=== PATIENT | female | born 1990 | race Caucasian/White ===

== ENCOUNTER 2017-04-18 08:00 | Outpatient (CLI) | payer OTHER | END 2017-04-18 23:59 | disposition home or self-care (01) | LOC: LAB.R 08:00 | PROVIDERS: ATTEND Registered Nurse | DX: Z11.3 Encounter for screening for infections with a predominantly sexual mode of transmission (principal) | CPT/HCPCS: 87491; 87591 ==

== ENCOUNTER 2017-04-18 15:44 | Outpatient (CLI) | payer OTHER ==
[2017-04-18 16:26] LABS: BASOPHILS # (AUTO) 0.1 10^3/uL (0.0-0.1); BASOPHILS % (AUTO) 0.7 %; EOSINOPHILS # (AUTO) 0.1 10^3/uL (0.0-0.7); EOSINOPHILS % (AUTO) 1.3 %; HCT - HEMATOCRIT 42.2 % (37.0-47.0); HGB - HEMOGLOBIN 14.1 g/dL (12.0-16.0); LYMPHOCYTES # (AUTO) 2.1 10^3/uL (1.5-3.5); LYMPHOCYTES % (AUTO) 30.1 %; MEAN CORPUSCULAR HGB CONC 33.5 g/dL (32.0-36.0); MEAN CORPUSCULAR VOLUME 92.5 fL (81.0-99.0); MEAN PLATELET VOLUME 8.7 fL (7.9-10.8); MONOCYTES # (AUTO) 0.5 10^3/uL (0.0-1.0); MONOCYTES % (AUTO) 7.5 %; NEUTROPHILS # (AUTO) 4.3 10^3/uL (1.5-6.6); NEUTROPHILS % (AUTO) 60.4 %; NUCLEATED RED BLOOD CELLS AUTO 0.1 /100WBC; RED BLOOD COUNT 4.56 10^6/uL (4.20-5.40); RED CELL DISTRIBUTION WIDTH 12.8 % (12.0-15.0); UNCORRECTED WHITE BLOOD COUNT 7.1 x10^3/uL; WHITE BLOOD COUNT 7.1 x10^3/uL (4.8-10.8)
[2017-04-18 18:20] LABS: BILIRUBIN,URINE NEGATIVE (NEGATIVE)
[2017-04-18 19:10] LABS: WBC,URINE 0-3 /HPF (0-5)
[2017-04-23 18:31] LABS: TEST RESULT REPORT
== END 2017-04-18 15:45 | disposition home or self-care (01) ==
LOC: LAB 15:44
PROVIDERS: ATTEND Registered Nurse
DX: Z36.9 Encounter for antenatal screening, unspecified (principal)
CPT/HCPCS: 36415; 81001; 81599; 85025; 86762; 86850; 86900; 86901; 87340; 87389

== ENCOUNTER 2017-04-27 11:35 | Outpatient (CLI) | payer OTHER ==
[2017-05-07 11:57] LABS: TEST RESULT REPORT
== END 2017-04-27 11:36 | disposition home or self-care (01) ==
LOC: LAB 11:35
PROVIDERS: ATTEND Registered Nurse
DX: Z36.9 Encounter for antenatal screening, unspecified (principal)
CPT/HCPCS: 36415; 81220; 81599

== ENCOUNTER 2017-07-01 12:41 | Outpatient (CLI) | payer OTHER ==
--- NOTE | 2017-07-03 16:24 | DEXA Report ---
OB ULTRASOUND: 07/01/2017 CLINICAL INDICATION: anatomy. TECHNIQUE: Real-time scanning was performed with branch sales and service representative static images obtained. LAST MENSTRUAL PERIOD: 02/11/2017 Clinical Age: 20 weeks 0 days US Age: 20 weeks 2 days EFW Hadlock: 329 grams EFW% Hadlock: -- Heart Rate: 143 bpm EDC: 11/18/2017 US EDC: 11/16/2017 BPD Hadlock: 20 weeks 6 days; Mean mm 49 HC Hadlock: 20 weeks 1 day; Mean mm 176 AC Hadlock: 20 weeks 2 days; Mean mm 151 FL Hadlock: 19 weeks 4 days; Mean mm 30 Presentation: cephalic. Placental Location: fundal. Cervical Length: 4.9 cm Amniotic Fluid: 13.05 FINDINGS There is a single viable intrauterine gestation, in cephalic presentation. heart rate is 143 BPM. The placenta is fundal without evidence of previa. Umbilical cord insertion is eccentric, at 1.5 cm from the placental edge. Amniotic fluid volume is subjectively normal, with the deepest pocket of 4.2 cm. By size, the fetus measures 20 weeks 2 days (20 weeks 0 days per dating on the order). The following anatomic structures were visualized and appear normal: The intracranial contents, including the ventricles and posterior fossa; the lips and orbits; the spine; the heart, including 4 chamber view and outflow tracts, and diaphragm; the abdominal contents, including the stomach, the bilateral kidneys, and urinary bladder, as well as a normal 3 vessel cord insertion; 4 limbs. No free fluid or adnexal lesion is appreciated. IMPRESSION: Single viable intrauterine gestation, with size in keeping with stated dating. Normal anatomic survey. Eccentric, but not marginal insertion of the umbilical cord into the placenta. TD: 07/01/2017 20:57 MTDD
== END 2017-07-01 12:42 | disposition home or self-care (01) ==
LOC: DI 12:41
PROVIDERS: ATTEND Nurse Practitioner Obstetrics & Gynecology
DX: Z36.9 Encounter for antenatal screening, unspecified (principal)
CPT/HCPCS: 76811

== ENCOUNTER 2017-08-14 07:07 | Outpatient (CLI) | payer OTHER | END 2017-08-14 07:08 | disposition home or self-care (01) | LOC: LAB.F 07:07 | PROVIDERS: ATTEND Nurse Practitioner Obstetrics & Gynecology | DX: Z36.9 Encounter for antenatal screening, unspecified (principal) ==

== ENCOUNTER 2017-08-15 09:29 | Outpatient (CLI) | payer OTHER ==
[2017-08-15 10:48] LABS: MEAN CORPUSCULAR HEMOGLOBIN 31.9 pg (27.0-31.0); MEAN CORPUSCULAR HGB CONC 34.9 g/dL (32.0-36.0); MEAN CORPUSCULAR VOLUME 91.3 fL (81.0-99.0); MEAN PLATELET VOLUME 8.7 fL (7.9-10.8); RED BLOOD COUNT 3.76 10^6/uL (4.20-5.40); RED CELL DISTRIBUTION WIDTH 13.3 % (12.0-15.0); WHITE BLOOD COUNT 8.6 x10^3/uL (4.8-10.8)
== END 2017-08-15 09:30 | disposition home or self-care (01) ==
LOC: LAB 09:29
PROVIDERS: ATTEND Nurse Practitioner Obstetrics & Gynecology
DX: Z36.9 Encounter for antenatal screening, unspecified (principal)
CPT/HCPCS: 36415; 82950; 86850

== ENCOUNTER 2017-08-22 07:57 | Outpatient (CLI) | payer OTHER | END 2017-08-22 07:58 | disposition home or self-care (01) | LOC: LAB 07:57 | PROVIDERS: ATTEND Nurse Practitioner Obstetrics & Gynecology | DX: R73.01 Impaired fasting glucose (principal) | CPT/HCPCS: 36415; 82951 ==

== ENCOUNTER 2017-08-29 16:14 | Outpatient (CLI) | payer OTHER | END 2017-08-29 16:15 | disposition home or self-care (01) | LOC: WFO 16:14 | PROVIDERS: ATTEND Nurse Practitioner Obstetrics & Gynecology | DX: Z53.9 Procedure and treatment not carried out, unspecified reason (principal) ==

== ENCOUNTER 2017-10-10 16:30 | Outpatient (CLI) | payer OTHER ==
[2017-10-10 18:02] LABS: ALBUMIN 3.1 g/dL (3.2-5.5); BILIRUBIN,DIRECT 0.1 mg/dL (0.1-0.5); BILIRUBIN,TOTAL 0.8 mg/dL (0.2-1.0); TOTAL PROTEIN 6.4 g/dL (6.7-8.2)
== END 2017-10-10 16:31 | disposition home or self-care (01) ==
LOC: DI 16:30
PROVIDERS: ATTEND Registered Nurse
DX: L29.9 Pruritus, unspecified (principal)
CPT/HCPCS: 36415; 80076; 82239

== ENCOUNTER 2017-10-22 13:04 | Outpatient (CLI) | payer OTHER ==
--- NOTE | 2017-10-24 15:19 | Ultrasound Report ---
OB FOLLOWUP: 10/22/2017 CLINICAL INDICATION: Eccentric umbilical cord insertion, check growth. COMPARISON: 07/01/2017. TECHNIQUE: Real-time scanning was performed with customer counter representative static images obtained. LAST MENSTRUAL PERIOD: 02/09/2017 Clinical Age: 36 weeks 3 days US Age: 37 weeks 1 day EFW Hadlock: 3086 g EFW% Hadlock: 68% Heart Rate: 157 bpm EDC: 11/16/2017 US EDC: 11/11/2017 BPD Hadlock: 37 weeks 2 days; Mean mm 91.8 HC Hadlock: 37 weeks 4 days; Mean mm 330.5 AC Hadlock: 37 weeks 0 days; Mean mm 331.4 FL Hadlock: 36 weeks 3 days; Mean mm 71.1 Presentation: cephalic Placental Location: fundal Cervical Length: --- Amniotic Fluid: 8.6 cm FINDINGS: There is a single viable intrauterine gestation, in cephalic presentation. heart rate is 157 BPM. The placenta is anterior. The cord insertion is not well visualized on today's examination. Amniotic fluid volume is normal, with an KATHIA of 8.6. By size, the fetus measures 37 weeks 1 day (36 weeks 3 days by previous sonogram). Estimated weight by Hadlock method is 3086 grams, 68th percentile for 36 weeks 3 days. No free fluid or adnexal lesion is appreciated. IMPRESSION: SINGLE VIABLE INTRAUTERINE GESTATION, WITH EXPECTED GROWTH FROM PREVIOUS ULTRASOUND. MTDD
== END 2017-10-22 13:05 | disposition home or self-care (01) ==
LOC: DI 13:04
PROVIDERS: ATTEND Registered Nurse
DX: O43.123 Velamentous insertion of umbilical cord, third trimester (principal)
CPT/HCPCS: 76816

== ENCOUNTER 2017-10-24 13:55 | Outpatient (CLI) | payer OTHER | END 2017-10-24 13:56 | disposition home or self-care (01) | LOC: LAB.R 13:55 | PROVIDERS: ATTEND Nurse Practitioner Obstetrics & Gynecology | DX: Z36.85 Encounter for antenatal screening for Streptococcus B (principal) | CPT/HCPCS: 87081 ==

== ENCOUNTER 2017-11-08 19:00 | Inpatient (IN) | payer OTHER ==
[2017-11-08 19:25] LABS: RUPTURE OF MEMBRANES PLUS POSITIVE (NEGATIVE)
[2017-11-08] MEDS ORDERED: SODIUM CHLORIDE FLUSH 0.9% 10 ML SYRINGE IVP PRN (20:52)
[2017-11-08] MEDS ORDERED: ACETAMINOPHEN 325 MG TABLET PO PRN (20:52)
--- NOTE | 2017-11-08 21:00 | HISTORY & PHYSICAL EXAMINATION ---
Admit History - Instructions [place]ash: -Left hand click circles element as positive or present. -Right hand click slashes element as negative or not present. - Visit Reason Visit Reason: Membranes rupture - : 1 Parity: 0 Premature: 0 Ectopic: 0 : 0 Care: positive: [facility] Risk/History: positive: Premature rupture membrane Complications This : positive: None Smoking Status: Never smoker - Mother's Labs Mother's Blood Type: positive: O Mother's RH: positive: Positive GBS: positive: Group B Step Negative Rubella Status: positive: Immune - Other Maternal History Other Maternal History: HPI: This 27yo @ 38.5wks gestation by L=9wk U/S presents for rupture of membranes at 1730 this evening. She reports a moderate amount of clear fluid that ran down her legs and soaked her pants 2 different times. She reports continued leaking. Upon evaluation she was noted to be closed/thick/high, vertex , posterior and to have grossly ruptured membranes. She was admitted to L&D for active management. She reports + movement. Denies contractions. Reports small amount of light pink discharge x 1 on the toilet tissue s/p first leakage of fluid but denies VB since that time. 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 Meds: PNV Allergies: NKDA labs: Blood type: O Rh: pos, Antibody: neg Hgb 14.1; Hct 42.2; PLT 242 Rubella immune HIV non-reactive GC/CT neg Hep B non-reactive FTA-ABS - neg Genetic testing: CF positive, neg 28 week labs: Hgb 12.0 Antibody neg 1 hour GTT 151 3 hour GTT: Fasting 82, 1 hour 156; 2 hour 130 10/20/2017: Bile Acids - 9; AST 20; ALT 15 Ultrasounds: 07/07/2017 FAS WNL with exception of eccentric cord insertion, 1.5cm from placental edge. Placental fundal, no previa. Physical Exam: Heart RRR w/ o M/G/R, lungs CTAB. Abdomen gravid, soft, nontender FHT's baseline 150, moderate variability, pos accel, no decels. Contractions palpate mild every 2-11 minutes. BP: 130/96, afebrile, P93 Assessment: 27yo @ 38.5wks gestation by L=9wk U/S Premature rupture of membranes - ROM + positive SVE closed/thick/high, vertex, posterior Desires epidural for pain management during active labor Plan: Continuous monitoring Cervadil cervical ripening in anticipation for pitocin indicated for premature rupture of membranes Activity and nutrition as indicated; encouraged position changes. Physical - Abdominal Exam Vital Signs: Temp Pulse Resp BP Pulse Ox 37.0 C 96 22 130/84 H 99 11/08/17 19:18 11/08/17 19:18 11/08/17 19:18 11/08/17 19:18 11/08/17 19:18
--- NOTE | 2017-11-08 21:21 | PROVIDER PROGRESS NOTE ---
Labor Progress Note - Uterine Monitoring Uterine Monitoring Mode: positive: External toco Contraction Frequency (min/apart): 2-11 Contraction Intensity: positive: Mild Uterine Resting Tone: positive: Soft - Monitoring Monitor Mode: positive: External ultrasound Heart Rate Baseline: 150 Heart Rate Variability: positive: Moderate (6-25 bmp) Accelerations: positive: Present, 15x15 Decelerations: positive: None Strip Review: positive: Category I - Vaginal Exam Dilation (in cm): 0 Effacement (%): 0 Station: -3 Cervical Position: Posterior - Labor Progress Note Labor Progress Note/Additional Text: S: Zaynab is sitting comfortably in bed with Juan supportive at the bedside. She complains of a mild headache since earlier this afternoon. She denies visual disturbances, RUQ or epigastric pain. She denies edema. Reports + FM and continued leaking of clear fluid. She is not feeling her contractions. Mood is good. States she is tired and thinks she will be able to sleep tonight but is slightly anxious about the anticipation of having a baby. O: SVE closed/thick/high, vertex, posterior. Clear fluid noted on pad. BP 130/96, Afebrile A: 27yo @ 38.5wks gestation by L=9 wk U/S PROM x 3.5 hours -afebrile GBS negative P: Risks vs benefits of expectant vs active management reviewed extensively with patient and her . They are in agreement with the recommendation for active management at this time. Will limit cervical examinations and defer SVE until 0800 on 11/09/2017 unless otherwise clinically indicated. Cervadil cervical ripening with 50mcg misoprostol q 4 hours BC in anticipation for pitocin induction of labor secondary to PROM Continuous monitoring Encouraged ambien for sleep tonight. Pt and verbalized understanding and agree to above plan. They deny further questions or concerns at this time.
[2017-11-08] MEDS ORDERED: ZOLPIDEM 5 MG TABLET PO PRN (21:22)
[2017-11-08] MEDS: miSOPROStol 100 MCG TABLET BC SCH (21:48)
[2017-11-08] MEDS: SODIUM CHLORIDE FLUSH 0.9% 10 ML SYRINGE IVP SCH (21:51)
[2017-11-08 21:52] LABS: BASOPHILS # (AUTO) 0.1 10^3/uL (0.0-0.1); BASOPHILS % (AUTO) 0.4 %; EOSINOPHILS # (AUTO) 0.1 10^3/uL (0.0-0.7); EOSINOPHILS % (AUTO) 0.5 %; HGB - HEMOGLOBIN 11.5 g/dL (12.0-16.0); LYMPHOCYTES # (AUTO) 2.4 10^3/uL (1.5-3.5); LYMPHOCYTES % (AUTO) 18.3 %; MEAN CORPUSCULAR HEMOGLOBIN 28.9 pg (27.0-31.0); MEAN CORPUSCULAR HGB CONC 33.1 g/dL (32.0-36.0); MEAN CORPUSCULAR VOLUME 87.3 fL (81.0-99.0); MONOCYTES # (AUTO) 0.7 10^3/uL (0.0-1.0); MONOCYTES % (AUTO) 5.6 %; NEUTROPHILS % (AUTO) 75.2 %; PLT - PLATELET COUNT 225 10^3/uL (130-450); RED BLOOD COUNT 3.99 10^6/uL (4.20-5.40); RED CELL DISTRIBUTION WIDTH 14.6 % (12.0-15.0); WHITE BLOOD COUNT 13.4 x10^3/uL (4.8-10.8)
[2017-11-08 22:05] LABS: ALBUMIN 2.9 g/dL (3.2-5.5); ALBUMIN/GLOBULIN RATIO 0.9 (1.0-2.2); BILIRUBIN,TOTAL 0.5 mg/dL (0.2-1.0); CALCIUM 8.5 mg/dL (8.5-10.3); CREATININE 0.6 mg/dL (0.4-1.0); TOTAL PROTEIN 6.1 g/dL (6.7-8.2); URIC ACID 3.7 mg/dL (2.6-7.2)
[2017-11-08] MEDS: LACTATED RINGERS 1,000 ML IV SCH (23:05)
[2017-11-09] MEDS: miSOPROStol 100 MCG TABLET BC SCH ×2 (01:52→05:57)
[2017-11-09] MEDS: LACTATED RINGERS 1,000 ML IV SCH ×4 (05:58→17:41)
--- NOTE | 2017-11-09 06:54 | PROVIDER PROGRESS NOTE ---
Labor Progress Note - Uterine Monitoring Uterine Monitoring Mode: positive: External toco Contraction Frequency (min/apart): 3-5 Contraction Intensity: positive: Moderate Uterine Resting Tone: positive: Soft - Monitoring Monitor Mode: positive: External ultrasound Heart Rate Baseline: 130 Heart Rate Variability: positive: Moderate (6-25 bmp) Accelerations: positive: Present, 15x15 Decelerations: positive: None Strip Review: positive: Category I - Vaginal Exam Dilation (in cm): 1 Effacement (%): 80 Station: 0 Cervical Position: Anterior - Labor Progress Note Labor Progress Note/Additional Text: S: Pt up on birthing ball. She slept for approximately 4 hours last night despite taking PO ambien. She is feeling increased cramping with contractions and is now easily able to differentiate one contraction from the next whereas prior she felt constant, menstrual-like cramping. Continues to leak clear fluid. Reports +FM. Denies TERRELL, visual disturbances, RUQ pain or epigastric pain. O: BP 99/66, afebrile. FHR baseline 130s, moderate variability, + accels, no decels. Contractions palpate moderate every 3-5 minutes with soft resting tone. A: 27yo @ 38.6wks gestation by L=9wk U/S ROM x 13 hours - afebrile GBS negative Cervical ripening successful and cervix favorable with a Li score of 8. S/p 3 doses of 50 mcg BC misoprostal. FHT Category I P: Last dose of misoprostol administered at 0600. Will initiate pitocin per protocol at 1000. Continuous monitoring. Epidural per maternal request. She verbalized understanding and agrees to above plan. She denies further questions or concerns at this time.
[2017-11-09] MEDS ORDERED: ONDANSETRON 4 MG/2 ML VIAL IVP PRN (08:35)
[2017-11-09] MEDS: SODIUM CHLORIDE FLUSH 0.9% 10 ML SYRINGE IVP SCH ×2 (08:42→10:16)
[2017-11-09] MEDS ORDERED: ONDANSETRON 4 MG/2 ML VIAL ONE (08:50)
[2017-11-09] MEDS ORDERED: OXYTOCIN/SODIUM CHLORIDE 500 ML IV SCH (09:00)
[2017-11-09 10:04] LABS: CREATININE,URINE 64.3 mg/dL; PROTEIN/CREATININE RATIO,URINE 0.1 (<=0.2)
--- NOTE | 2017-11-09 12:49 | PROVIDER PROGRESS NOTE ---
Labor Progress Note - Uterine Monitoring Uterine Monitoring Mode: positive: External toco Contraction Frequency (min/apart): 3-6 Contraction Intensity: positive: Moderate Uterine Resting Tone: positive: Soft - Monitoring Monitor Mode: positive: External ultrasound Heart Rate Baseline: 140 Heart Rate Variability: positive: Moderate (6-25 bmp) Accelerations: positive: Present, 15x15 Decelerations: positive: None Strip Review: positive: Category I - Vaginal Exam Dilation (in cm): 3 Effacement (%): 90 Station: 0 Cervical Position: Anterior - Labor Progress Note Labor Progress Note/Additional Text: S: Pt crying in discomfort with contractions and grabbing onto side rail and breathing heavily through contractions. She reports she is tired and she is requesting an epidural at this time. and parents supportive at the bedside. O: BP 102/79, T 36.8, RR 17, HR 88; SVE 3/90/0, vertex, medium consistency, anterior position. There is a tight band at 3cm. Pt has no hx of deputy coroner surgeries or surgical procedures. Contractions palpate moderate inconsistently every 3-6 minutes. FHR baseline 140, moderate variability, + accels, no decels. A: 27yo @ 38.6 wks gestation by L=9wk U/S ROM x 19 hours-afebrile GBS negative Pitocin augmentation - Pitocin at 3mU/mL P: Epidural per maternal request. Josh Guardado CRNA notified by telephone. Continue titration of pitocin per protocol Continuous monitoring Anticipate spontaneous vaginal delivery
[2017-11-09] MEDS ORDERED: fent/BUPIV 2 MCG/0.125% 250 ML EP ONE (13:00)
--- NOTE | 2017-11-09 17:11 | PROVIDER PROGRESS NOTE ---
Labor Progress Note - Uterine Monitoring Uterine Monitoring Mode: positive: External toco Contraction Frequency (min/apart): 1.5-5 Contraction Intensity: positive: Moderate Uterine Resting Tone: positive: Soft - Monitoring Monitor Mode: positive: External ultrasound Heart Rate Baseline: 150 Heart Rate Variability: positive: Moderate (6-25 bmp) Accelerations: positive: Present, 15x15 Decelerations: positive: Late, Variable Strip Review: positive: Category II - Vaginal Exam Dilation (in cm): 4 Effacement (%): 90 Station: 0 Cervical Position: Anterior - Labor Progress Note Labor Progress Note/Additional Text: S: Zaynab is laying comfortably in bed on her left side. She is feeling well and was able to rest and get a little sleep. Unable to appreciate contractions since placement of epidural. Has good movement of her feet. Mood is good. supportive at the bedside. O: FHR baseline 150s, moderate variability, + accels, occasional variable decelerations, occasional late decelerations with rosalee decreased to 120bpm. Contractions palpate moderate every 1.5-5 minutes SVE 3/90/0, vertex, medium consistency, posterior Pitocin currently running at 4mU/mL A: 27yo @ 38.6wks gestation ROM x 24 hours FHT Category II - overall reassuring with continued moderate variability Augmentation of labor with pitocin max 4mU/mL GBS negative P: Continue pitocin per protocol Fluid bolus 500mL due to Category II FHR tracing Continuous monitoring Encouraged position changes in bed. Reviewed Category II tracing with pt and and discussed continued plan of care. Pt and agree with above plan and deny further questions or concerns at this time.
--- NOTE | 2017-11-09 19:15 | PROVIDER PROGRESS NOTE ---
Labor Progress Note - Uterine Monitoring Uterine Monitoring Mode: positive: External toco Contraction Frequency (min/apart): 1.5-6 Contraction Intensity: positive: Moderate Uterine Resting Tone: positive: Soft - Monitoring Monitor Mode: positive: External ultrasound Heart Rate Baseline: 140 Heart Rate Variability: positive: Moderate (6-25 bmp) Accelerations: positive: Present, 15x15 Decelerations: positive: Early, Late Strip Review: positive: Category II - Labor Progress Note Labor Progress Note/Additional Text: S: Pt comfortable in bed in a frog leg position. Feeling increased vaginal pressure in this position. supportive at the bedside. O: SVE deferred at this time. T 37.2 Contractions palpate moderate every 1.5-6 minutes FHR baseline 140, moderate variability, + accels, intermittent variable decelerations, intermittent late decelerations. Pitocin @ 6mU/mL S/p 500mL IV fluid bolus; O2 mask placed A: 27yo @ 38.6wks gestation by L=9wk U/S ROM x 25.5 hours FHT Category II -overall reassuring GBS neg P: Continue titration of pitocin per protocol Continuous monitoring Anticipate spontaneous vaginal delivery
[2017-11-09] MEDS ORDERED: OXYTOCIN/SODIUM CHLORIDE 250 ML IV ONE (23:10)
[2017-11-09] MEDS ORDERED: WITCH HAZEL/GLYCERIN 1 EACH MED..PAD TOP PRN (23:10)
[2017-11-09] MEDS ORDERED: HYDROCORTISONE/PRAMOXINE 10 GM PR PRN (23:10)
--- NOTE | 2017-11-09 23:10 | DELIVERY NOTE ---
Delivery Note - Labor Labor: positive: Induced by oxytocin - Infant Delivery Method Delivery Method: positive: Spontaneous vaginal delivery - Presentation Presentation: positive: Vertex, LOP - left occiput posterior - Nuchal Cord Nuchal Cord: positive: None - Anesthetic Anesthetic Type: - Amniotic Fluid Description Amniotic Fluid Description: positive: Clear - Episiotomy Type Episiotomy Type: positive: None - Laceration Laceration: positive: 1st degree - Suture Suture Type: positive: Vicryl Suture Size: positive: 3-0 - Delivery Outcome Delivery Outcome: positive: Livebirth - : positive: Placed in direct skin contact with mother, Stimulated, Leland used sex: positive: Male - Cord Cord: positive: 3 vessels - Placenta Placenta: positive: Intact, Spontaneous - Estimated Blood Loss Estimated Blood Loss (in cc): 250 - Post Delivery Events Post Delivery Events: positive: No post delivery events - Delivery Comments (Free Text/Narrative) Delivery Comments (Free Text/Narrative): Labor: This 27yo @ 38.6wks gestation by L=9 wk U/S presented on 11/08/2017 at 1800 with c/o continually leaking clear fluid vaginally since 1730. ROM+ was positive and pt was admitted to [facility] for management. Cervix was close/thick/ high and vertex. She was given 50mcg misoprostol BC q 4 hours until she progressed to 3/80/0 and pitocin induction of labor was initiated per protocol at 1000. Epidural per maternal request. FHR pattern demonstrated 140 baseline in a Category II pattern - overall reassuring and maintained moderate variability throughout. Total SROM x29 hours and patient remained afebrile throughout her labor course. She progressed to c/c/+1 at 2140 and experienced significant increase in vaginal pressure. She began effectively pushing at 2150. : Normal SVB of a viable male named Souleymane in an LOP position. No nuchal cord. Apgars were 8/9 at 1 and 5 min respectively at 2227 on 11/09/2017. The was placed on maternal abdomen, stimulated, dried, and placed skin to skin. The umbilical cord was allowed to stop pulsating after which time it was doubly clamped and cut by FOB. Cord blood was obtained. Placenta delivered spontaneous and intact at 2238 and was noted to have a marginal insertion of umbilical cord. 3VC. Pitocin was administered via IV for hemostasis. EBL 250mL. Fourth Stage: Uterine fundus firm and there is no excessive bleeding. The perineum, vagina, and cervix were inspected and noted to have a 2cm 1st degree, shallow laceration at vaginal introitus which was repaired with a 2-[address]-1 needle under sterile conditions in the usual fashion. She was also noted to have a superficial extension of the previously mentioned first degree laceration extending from the introitus to 4cm up left labia minora which remained hemostatic and was left unrepaired. Vaginal examination following the repair was done. Tissue well approximated. initiated. Family bonding well. Both mother and baby are in stable condition.
[2017-11-10] MEDS: IBUPROFEN 800 MG TABLET PO SCH ×4 (02:17→18:35)
[2017-11-10] MEDS: SODIUM CHLORIDE FLUSH 0.9% 10 ML SYRINGE IVP SCH (02:17)
[2017-11-10] MEDS: ACETAMINOPHEN 500 MG TABLET PO PRN ×2 (08:05→16:14)
[2017-11-10] MEDS: DOCUSATE SODIUM 100 MG CAPSULE PO SCH ×2 (08:05→20:32)
--- NOTE | 2017-11-10 10:39 | ANESTHESIA POST OP EVALUATION ---
Anesthesia Post Eval - Post Anesthesia Eval CV Function Including HR & BP: positive: Stable Pain Control: positive: Adequate Nausea & Vomiting: positive: Negative Mental Status: positive: Appropriate Anesthesia Complications: positive: None (Patient reported good pain relief with epidural. Denies headache. Full motor function. No apparent anesthesia complications)
--- NOTE | 2017-11-10 12:11 | PROVIDER PROGRESS NOTE ---
Subjective - Prog Note Date Prog Note Date: 11/10/17 Prog Note Time: 12:00 - Subjective Pt reports feeling: Improved Subjective: Zaynab is doing well. She is ambulating & voiding w/o discomfort. She is passing flatus & tolerating po intake. She is exclusively w/o discomfort. She reports minimal lochia rubra. Juan & her parents are at the bedside & are supportive. She is not planning to return to work. Objective - Vital Signs/Intake & Output Reviewed Vital Signs: Yes Vital Signs: Vital Signs x48h Temp Pulse Resp BP Pulse Ox 11/10/17 07:55 36.5 C 75 18 113/68 98 11/10/17 05:35 37.3 C 96 18 121/75 98 Intake & Output: Intake & Output 11/07/17 11/08/17 11/09/17 11/10/17 23:59 23:59 23:59 23:59 Intake Total 6993.090 1296.567 Output Total 1575 900 Balance -441.067 378.567 - Objective General Appearance: positive: No acute distress, Alert Eyes Bilateral: positive: Other (7th cranial nerve absent; facial asymmetry) Respiratory: positive: Chest non-tender, No respiratory distress, Breath sounds nml Cardiovascular: positive: Regular rate & rhythm, No murmur Abdomen: positive: Non-tender, Nml bowel sounds, No distention, Other (FF U-2) Skin: positive: Color nml, No rash, Warm, Dry Extremities: positive: Non-tender, Full ROM, Nml appearance. negative: Pedal edema, Calf tenderness, Deo's sign/cords Neurologic/Psychiatric: positive: Oriented x3, Sensation nml, Mood/affect nml Comments/Other: pt declines perineal inspection & breast evaluation; declines assistance w/ @ this time - Lab Results Fish Bones: 11/08/17 21:30 11/08/17 21:30 ABX Reporting Has patient been on IV antibiotics over the past 48 hours?: No Assessment/Plan - Problem List (1) (normal spontaneous vaginal delivery) Impression: A: 27 y/o s/p w/ 1st degree perineal laceration w/ repair, PPD#1 Normal uterine involution Adequate pain control w/o opioid analgesia w/o complication P: 1. Continue routine pp care 2. support PRN 3. Anticipate d/c PPD#2
[2017-11-10] MEDS ORDERED: HYDROCORTISONE/PRAMOXINE 10 GM PR PRN (14:29)
[2017-11-11] MEDS: IBUPROFEN 800 MG TABLET PO SCH ×2 (01:33→09:48)
[2017-11-11] MEDS: ACETAMINOPHEN 500 MG TABLET PO PRN ×2 (01:34→09:48)
--- NOTE | 2017-11-11 08:14 | Discharge Plan ---
Discharge Plan Disposition: 01 Home, Self Care Condition: Good Diet: Regular Activity Restrictions: pelvic rest x6 weeks Shower Restrictions: No Driving Restrictions: No Instruction Topics: Vaginal After, Breastfeed How To, Exercises Kegel No Smoking: If you smoke, Please STOP! Call for help. Follow-up with: Serenity Loco CNM, ARNP [Primary Care Provider] -
--- NOTE | 2017-11-11 08:16 | DISCHARGE SUMMARY ---
"Discharge Summary Admit Date: 11/08/17 Discharge Date: 11/11/17 Discharging Provider: jd Code Status: Attempt Resuscitation Condition at Discharge: Good Discharge Disposition: 01 Home, Self Care Discharge Facility Name: [facility] - DIAGNOSES Admission Diagnoses: PREMATURE RUPTURE OF MEMBRANES Discharge Diagnoses with Status of Each Condition: - HPI History of Present Illness: WES PRESENTED WITH PREMATURE RUPTURE OF MEMBRANES FOR CAF. SHE RECEIVED MISOPROSTOL BUCCALLY FOR EFFECTIVE CERVICAL RIPENING & THEN RECEIVED PITOCIN INFUSION & EPIDURAL ANESTHESIA. SHE PROGRESSED STEADILY TO COMPLETE DILATATION & DELIVERED A VIABLE MALE VAGINALLY OVER A 1ST DEGREE PERINEAL LACERATION W/O COMPLICATION. - CONSULTS | PROCEDURES Consultations: ANESTHESIA Procedures: PREINDUCTION CERVICAL RIPENING W/ BUCCAL MISOPROSTOL INDUCTION OF LABOR W/ PITOCIN INFUSION EPIDURAL PLACEMENT REPAIR OF 1ST DEGREE PERINEAL LACERATION - HOSPITAL COURSE Hospital Course: , WES IS AMBULATING & VOIDING W/O DIFFICULTY. SHE IS PASSING FLATUS & TOLERATING PO INTAKE. HER PAIN IS WELL-CONTROLLED W/ NON-OPIOID ANALGESIA. SHE REPORTS MINIMAL LOCHIA RUBRA. SHE IS EXCLUSIVELY W/O COMPLICATION OR DISCOMFORT. SHE IS NOT PLANNING TO RETURN TO WORK. HER , SHEMAR, IS PRESENT & INVOLVED & SUPPORTIVE. HER MOTHER IS PRESENT & SUPPORTIVE WELL. SHE IS ABLE TO FULLY ARTICULATE PP WARNING S/SX, INCLUDING PP DEPRESSION WARNING S/SX, AND PP AFTERCARE INSTRUCTIONS. SHE IS READY TO LEAVE THE HOSPITAL. - ALLERGIES Allergies/Adverse Reactions: Allergies Allergy/AdvReac Type Severity Reaction Status Date / Time No Known Drug Allergies Allergy Verified 11/08/17 22:43 - MEDICATIONS Home Medications: Ambulatory Orders Medication Instructions Recorded Confirmed Ibuprofen [Motrin] 800 mg PO Q6H tablet 11/11/17 - PHYSICAL EXAM AT DISCHARGE General Appearance: positive: No acute distress, Alert Respiratory: positive: Chest non-tender, No respiratory distress, Breath sounds nml Cardiovascular: positive: Regular rate & rhythm, No murmur, No gallop Abdomen: positive: Non-tender, No distention, Other (FF U-2) Skin: positive: Color nml, No rash, Warm, Dry Extremities: positive: Non-tender, Full ROM, Nml appearance, No pedal edema. negative: Calf tenderness, Deo's sign/cords Neurologic/Psychiatric: positive: Oriented x3, Motor nml, Sensation nml, Mood/ affect nml Physical Exam Other/Comments: DECLINES ASSISTANCE W/ OR EXAMINATION OF BREASTS & DECLINES PERINEAL INSPECTION SECONDARY TO COMPANY IN THE ROOM - LABS Result Diagrams: 11/08/17 21:30 11/08/17 21:30 - FOLLOW UP Follow Up: X1 WEEK FOR , X3 WEEKS FOR VISIT, X8 WEEKS FOR ANNUAL EXAM. - TIME SPENT Time Spent in Discharge (Minutes): 20"
[2017-11-11] MEDS: DOCUSATE SODIUM 100 MG CAPSULE PO SCH (09:51)
[2017-11-11 11:47] VITALS: BP 123/75
--- NOTE | 2017-11-11 16:14 | Labor Flowsheet ---
Labor Flowsheet Datetime Report Generated by CPN: 11/11/2017 16:14 Datetime: 11/11/2017 11:31 VITAL SIGNS NBP Sys/Karissa/Mean (mmHg): 123 : 75 : 86 Pulse: 89 LaborFlag: Labor Datetime: 11/10/2017 20:39 SpO2 (%): 99 Datetime: 11/09/2017 22:27 UTERINE ACTIVITY Monitor Mode: External Frequency (min): 1-3 Quality: Mild Duration (sec): 50-100 Pattern: Normal: <= 5 Contractions in 10 Minutes Resting Tone (Palpate): Relaxed ASSESSMENT A Monitor Mode: External US FHR Baseline Rate : 140 Variability: Minimal - Undetectable to <=5 bpm Accelerations: None Decelerations: Variable Category: Category II Comments: Centricity monitor off by 4 mins, birthtime 2227 Datetime: 11/09/2017 22:10 STAGE 2 Pushing: Coached on Pushing; Urge to Push; Involuntary Pushing Pushing Progress: Descent with Pushing; Caput Noted; Pushing Effectively with Contractions COMMUNICATION Communication: Provider at Bedside Provider Notified (Name): A. Beronica, CNM Notification Reason: Other Communication Comments: To attend delivery Datetime: 11/09/2017 21:52 Pushing Position: Pushing with Contractions Datetime: 11/09/2017 21:50 I/O Interventions: Waters Discontinued Patient Care Comments: 575ml in waters Datetime: 11/09/2017 21:44 VAGINAL EXAM Dilatation (cm): 10.0 Effacement (%): 100 Station: 2 Exam by: A. Beronica, CNM Datetime: 11/09/2017 21:30 Contraction Comments: RN @ bedside to adjust TOCO intermit tracing Datetime: 11/09/2017 21:28 Monitor Interventions for UA: [place] Adjusted Datetime: 11/09/2017 21:22 Temperature (C): 37.3 Datetime: 11/09/2017 21:10 Patient Position/Activity: High Fowlers Datetime: 11/09/2017 21:00 Actions for Decelerations: Side to Side Datetime: 11/09/2017 20:31 TEACHING Instructional Method: Verbal Plan of Care: Plan of Care Discussed; Vaginal Delivery; Labor Pain Management: Epidural; Pain Scale/Goals Related: Activity and Rest Datetime: 11/09/2017 20:21 Vaginal Bleeding: Normal Show Datetime: 11/09/2017 20:01 PAIN Pain Scale: 3 Pain Presence: Intermittent Pain Type: Cramping Pain Location: Abdomen Pain Goal: 5 Pain Relief Measures: [employer] DEAN Use Pain Coping: Talking Through Contractions; Breathing Through Contractions Pain Assessment Comments: Epidural infusing, pt was positioned in high fowlers and is not positione d laying left lateral , pain is more in left abdomen Datetime: 11/09/2017 19:38 Temperature Route: Oral Datetime: 11/09/2017 19:16 FHR Baseline Changes: No Baseline Change Oxygen Method: Room Air Datetime: 11/09/2017 19:03 MEDICATIONS Pitocin (milliunits): Increased to @ 6 Strip Reviewed by: kiesha mcgill cnm Datetime: 11/09/2017 18:57 Respirations: 16 Datetime: 11/09/2017 18:49 Oxygen Amount (LPM): 10 Datetime: 11/09/2017 17:13 PATIENT CARE IV/Blood Work: IV Bolus Started Datetime: 11/09/2017 17:00 Cervix, Consistency: Soft Cervix, Position: Anterior Datetime: 11/09/2017 13:15 Epidural Procedure: Loading Dose Epidural Procedure Other: Pump Started Datetime: 11/09/2017 13:09 PROCEDURE TIME OUT Procedure Verify: Correct Patient Identity; Correct Side and Site are Marked; Accurate Procedure Co nsent Form; Agreement on Procedure to be Done; Correct Patient Position; Safety Precautions Based on Patient History or Medication Use ANESTHESIA Anesthesia Plans: Epidural Epidural Positioning: Sitting Datetime: 11/09/2017 13:07 Anesthesia Comments: local new spot Datetime: 11/09/2017 12:54 Anesthesia Interview: I Datetime: 11/09/2017 12:02 Pitocin Checklist: At Least 1 Acceleration of 15 bpm x 15 Seconds in 30 Minutes or Adequate Variabi lity; No More than 1 Late Deceleration Occurred in Past 30 Minutes; No More than 2 Variable Decelerat ions > 60 Seconds in Duration and decreasing >60 bpm in 30 minutes; No More than 5 Uterine Contractio ns in 10 Minutes for any 20 Minute Interval; Uterus Palpates Soft between Contractions Datetime: 11/09/2017 09:02 Monitor Interventions for FHR: Ultrasound Adjusted Datetime: 11/09/2017 08:49 Antiemetics/Antacids: Zofran (mg) @ 4 Datetime: 11/09/2017 08:36 Comfort Measures: Rocking Chair Datetime: 11/09/2017 08:17 Stage of : Labor Datetime: 11/09/2017 06:42 Labor/Induction: Augmentation Medications: Pitocin Datetime: 11/09/2017 06:37 Lie 'A': Longitudinal Datetime: 11/09/2017 06:00 Cervical Ripening Agents: Cytotec @ 50 Datetime: 11/09/2017 02:32 Analgesics/Sedatives: Tylenol (mg) @ 650 Datetime: 11/08/2017 20:15 Membrane Status: Ruptured Membranes Ruptured Date/Time: 11/08/2017 17:30 Membranes Rupture Method: Spontaneous Amniotic Fluid Color: Clear Amniotic Fluid Amount: Small Amniotic Fluid Odor: Normal Nitrazine: Positive MATERNAL ASSESSMENT Level of Consciousness: Fully Conscious DTR's/Clonus: DTRs 2+; No Clonus Headache: Denies Breath Sounds, Left: Clear and Equal Breath Sounds, Right: Clear and Equal Nausea/Vomiting: Denies RUQ Epigastric Pain: Denies Maternal Comments: No SOB or vision changes Hygiene: Peripad Changed
== END 2017-11-11 12:00 | disposition home or self-care (01) | DRG 775 ==
LOC: WFO 19:00 → FBP 19:02 → WFO 20:07
PROVIDERS: ADMIT Nurse Practitioner Obstetrics & Gynecology; ATTEND Registered Nurse
PROC: 10E0XZZ Delivery of Products of Conception, External Approach (ICD-10-PCS; principal; 2017-11-09)
PROC: 0HQ9XZZ Repair Perineum Skin, External Approach (ICD-10-PCS; 2017-11-09)
DX: O42.02 Full-term premature rupture of membranes, onset of labor within 24 hours of rupture (principal); O70.0 First degree perineal laceration during delivery; O32.8XX0 Maternal care for other malpresentation of fetus, not applicable or unspecified; Z3A.38 38 weeks gestation of pregnancy; Z37.0 Single live birth
CPT/HCPCS: 80053; 82570; 84112; 84156; 84550; 85025; 99212

== ENCOUNTER 2019-09-27 14:06 | Outpatient (CLI) | payer OTHER ==
--- NOTE | 2019-09-28 13:09 | Ultrasound Report ---
Reason: TEST POSITIVE Procedure Date: 09/27/2019 Accession Number: [id number] / [id number] Procedure: US - OB First Trimester CPT Code: Final Report FULL RESULT: EXAM: FIRST TRIMESTER OBSTETRIC ULTRASOUND (Less than 11 weeks) EXAM DATE: 09/27/2019 02:50 PM. CLINICAL HISTORY: test positive. LMP: Unknown. COMPARISONS: None. TECHNIQUE: Transabdominal and transvaginal ultrasound examination with static image documentation. CLINICAL DATES: EGA 9 weeks 3 days with ABEBE 04/28/2020 based on based on LMP of 07/23/2019. ASSESSMENT: Gestational Sac: Single intrauterine. Embryo: CRL (crown-rump length) 32 mm = 10 weeks 1 day with an ABEBE of 04/23/2020. Cardiac activity: 161 beats per minute. Yolk sac: 6 mm. Amniotic fluid: Not accurately assessed at this gestational age. Early placenta: Posterior placenta without gross previa. Other: No perigestational fluid collection demonstrated. MATERNAL STRUCTURES: Uterus: Anteverted. Unremarkable. Cervix: Closed. Right Ovary/Adnexa: The ovary measures 2.2 x 1.2 x 2.7 cm, volume 3.8 cc. Unremarkable. Left Ovary/Adnexa: The ovary measures 2.5 x 2.0 x 2.3 cm, volume 6 cc. 1.5 x 1.6 x 1.5 Cm complex left ovarian cyst with debris and mild peripheral flow. No mural nodules or thickened septations. Free Fluid: None. Other: None. IMPRESSION: 1. Single viable intrauterine at EGA 10 weeks 1 day with ABEBE 04/23/2020 based on crown-rump length, which is concordant with clinical dates. 2. Assigned dating is ABEBE 04/28/2020 based on LMP. 3. No complications such as a subchorionic hemorrhage. 4. 1.6 cm complex left ovarian cyst most compatible with a corpus luteum. Otherwise, normal bilateral ovaries and adnexa. RADIA
== END 2019-09-27 14:07 | disposition home or self-care (01) ==
LOC: DI 14:06
PROVIDERS: ATTEND Advanced Practice Midwife
DX: O34.81 Maternal care for other abnormalities of pelvic organs, first trimester (principal); N83.292 Other ovarian cyst, left side; Z3A.10 10 weeks gestation of pregnancy
CPT/HCPCS: 76801; 76817

== ENCOUNTER 2019-10-21 11:07 | Outpatient (CLI) | payer OTHER ==
[2019-10-21 13:21] LABS: MUDS CUTOFF CONCENTRATIONS CUTOFF CONC BELOW:
[2019-10-21 13:42] LABS: BILIRUBIN,URINE NEGATIVE (NEGATIVE); GLUCOSE, URINE (UA) NEGATIVE (NEGATIVE); KETONES,URINE (UA) NEGATIVE (NEGATIVE); LEUKOCYTE ESTERASE, URINE NEGATIVE (NEGATIVE); NITRITE,URINE NEGATIVE (NEGATIVE); OCCULT BLOOD,URINE NEGATIVE (NEGATIVE); PROTEIN,URINE NEGATIVE (NEGATIVE); UROBILINOGEN,URINE 0.2 (NORMAL) E.U./dL (NORMAL)
[2019-10-21 13:50] LABS: AMPHETAMINE SCREEN,URINE NEGATIVE (NEGATIVE); BENZODIAZEPINES SCREEN, URINE NEGATIVE (NEGATIVE); COCAINE SCREEN URINE NEGATIVE (NEGATIVE); METHADONE SCREEN, URINE NEGATIVE (NEGATIVE); METHAMPHETAMINES SCREEN, URINE NEGATIVE (NEGATIVE); OPIATE SCREEN, URINE NEGATIVE (NEGATIVE); OXYCODONE SCREEN, URINE NEGATIVE (NEGATIVE); PROPOXYPHENE SCREEN, URINE NEGATIVE (NEGATIVE); TRICYCLIC ANTIDEPRESSANT,URINE NEGATIVE (NEGATIVE)
[2019-10-21 13:51] LABS: CLARITY,URINE CLEAR (CLEAR)
[2019-10-21 13:55] LABS: BACTERIA,URINE Rare /HPF (None Seen); RBC,URINE 0-5 /HPF (0-5); SQUAMOUS EPITHELIAL CELL,UR RARE Squamous (<= Few)
[2019-10-21 21:38] LABS: TRICHOMONAS VAGINALIS DNA NEGATIVE (NEGATIVE)
== END 2019-10-21 23:59 | disposition home or self-care (01) ==
LOC: LAB.R 11:07
PROVIDERS: ATTEND Advanced Practice Midwife
DX: Z34.90 Encounter for supervision of normal pregnancy, unspecified, unspecified trimester (principal)
CPT/HCPCS: 80306; 81001; 87086; 87491; 87591; 87661

== ENCOUNTER 2019-10-21 11:35 | Outpatient (CLI) | payer OTHER ==
[2019-10-21 13:24] LABS: BASOPHILS % (AUTO) 0.6 %; EOSINOPHILS % (AUTO) 0.6 %; HGB - HEMOGLOBIN 12.9 g/dL (12.0-16.0); LYMPHOCYTES # (AUTO) 1.7 10^3/uL (1.5-3.5); MEAN CORPUSCULAR HEMOGLOBIN 29.6 pg (27.0-31.0); MEAN CORPUSCULAR HGB CONC 32.8 g/dL (32.0-36.0); MEAN CORPUSCULAR VOLUME 90.1 fL (81.0-99.0); MEAN PLATELET VOLUME 10.9 fL (7.9-10.8); MONOCYTES # (AUTO) 0.4 10^3/uL (0.0-1.0); MONOCYTES % (AUTO) 5.6 %; NEUTROPHILS # (AUTO) 4.3 10^3/uL (1.5-6.6); NEUTROPHILS % (AUTO) 66.9 %; PLT - PLATELET COUNT 258 10^3/uL (130-450); RED BLOOD COUNT 4.36 10^6/uL (4.20-5.40); RED CELL DISTRIBUTION WIDTH 12.6 % (12.0-15.0); WHITE BLOOD COUNT 6.4 x10^3/uL (4.8-10.8)
[2019-10-22 10:40] LABS: HIV AG/AB 4TH GEN NON-REACTIVE (NON-REACTIVE)
[2019-10-22 13:20] LABS: HEPATITIS C ANTIBODY NON-REACTIVE (NON-REACTIVE)
[2019-10-22 15:30] LABS: HEPATITIS B SURFACE ANTIGEN NON-REACTIVE (NON-REACTIVE)
== END 2019-10-21 23:59 | disposition home or self-care (01) ==
LOC: LAB.WCP 11:35
PROVIDERS: ATTEND Advanced Practice Midwife
DX: Z34.90 Encounter for supervision of normal pregnancy, unspecified, unspecified trimester (principal)
CPT/HCPCS: 36415; 81599; 85025; 86592; 86762; 86803; 86850; 86900; 86901; 87340; 87389

== ENCOUNTER 2019-12-09 12:02 | Outpatient (CLI) | payer OTHER ==
--- NOTE | 2019-12-09 17:16 | Ultrasound Report ---
PROCEDURE: OB Detailed Eval INDICATIONS: SUPERVISION OF NORMAL OUTSIDE/PRIOR DATING DATA: Last menstrual period (LMP): 07/23/2019. LMP-based estimated date of delivery (ABEBE): 04/28/2020. First dating scan (date and location): 09/27/2019. Estimated date of delivery (ABEBE) from first dating scan: 04/28/2020. TECHNIQUE: Real-time scanning was performed of the fetus, with image documentation and biometric measurements. Endovaginal scanning: Not performed COMPARISON: 09/27/2019 FINDINGS: General: A single living intrauterine gestation is present. Presentation: Breech/variable Placenta: Placental position is posterior, without previa. Amniotic fluid index: 12.0 cm cm, 24th percentile for gestational age. Largest vertical fluid pocke t measures 3.7 cm. heart rate: 144 beats per minute. Maternal cervical canal: 4.8 cm long; normal length is 2.5 cm or more. biometrics: Biparietal diameter: 4.4 cm, correlating with 19 weeks and 3 days Head circumference: 17.4 cm, correlating with 19 weeks and 6 days Abdominal circumference: 15.2 cm, correlating with 20 weeks and 3 days Femur length: 3.2 cm, correlating with 19 weeks and 6 days Estimated gestational age from initial scan: not applicable. Composite gestational age from present scan: 19 weeks and 6 days Estimated weight and percentile: 333 g which correlates with the 60th percentile based on gest ational age Measurement variability in biometric dating: +/- 10 days from 12-20 weeks gestation, +/- 2 weeks from 20-30 weeks gestation, +/- 3 weeks at 30 weeks gestation or later. Anatomic survey: Neuro: Ventricles are normal at less than 10 mm. Cisterna magna is normal at 3-11 mm. Cerebellum i s normal in size and morphology. Nuchal skin fold: Normal at less than 6 mm between 14 and 20 weeks gestational age. Face: Nose and lips, facial profile are normal. Spine: No evidence for spina bifida. Heart: 4-chambered heart is present, with normal ventricular outflow tracts. Diaphragm: Diaphragm is intact. Stomach: Left-sided stomach is present. Kidneys: No hydronephrosis. Normal is less than 5 mm in 2nd trimester, less than 7 mm in 3rd trimester. Cord: 3 vessel cord has orthotopic insertion. Bladder: Normal in size. Extremities: All 4 extremities are visualized. IMPRESSION: 1. Single living intrauterine gestation with an estimated sonographic gestational age of approximatel y 19 weeks and 6 days. Estimated weight of 333 g which [address] the fetus within the 60th percent ile based off gestational age. Expected interval growth has occurred. 2. Normal routine second trimester anatomic screening survey. Reviewed by: Kaden Stark MD on 12/09/2019 5:15 PM PDT Approved by: Kaden Stark MD on 12/09/2019 5:15 PM PDT Station ID: [id number]
== END 2019-12-09 12:03 | disposition home or self-care (01) ==
LOC: DI 12:02
PROVIDERS: ATTEND Advanced Practice Midwife
DX: Z34.90 Encounter for supervision of normal pregnancy, unspecified, unspecified trimester (principal)
CPT/HCPCS: 76811

== ENCOUNTER 2020-02-01 14:45 | Outpatient (CLI) | payer OTHER ==
--- NOTE | 2020-02-01 16:16 | Ultrasound Report ---
PROCEDURE: OB F/U or Repeat INDICATIONS: UTERINE SIZE>DATES,SUPERVISION OF OUTSIDE/PRIOR DATING DATA: Last menstrual period (LMP): 07/23/2019. LMP-based estimated date of delivery (ABEBE): 04/28/2020. First dating scan (date and location): 09/27/2019. Estimated date of delivery (ABEBE) from first dating scan: 04/28/2020. TECHNIQUE: Real-time scanning was performed of the fetus, with image documentation and biometric measurements. Endovaginal scanning: Not performed COMPARISON: None. FINDINGS: General: A single living intrauterine gestation is present. Presentation: Vertex Placenta: Placental position is posterior, without previa. Amniotic fluid index: 18.4 cm (largest pocket 5.5 cm), 78% for gestational age. heart rate: 133 beats per minute. Maternal cervical canal: 5 cm long; normal length is 2.5 cm or more. biometrics: Biparietal diameter: 29 weeks 3 days Head circumference: 30 weeks 0 day Abdominal circumference: 28 weeks 3 days Femur length: 28 weeks 3 days Estimated gestational age from initial scan: 27 weeks 4 days. Composite gestational age from present scan: 29 weeks 1 day Estimated weight and percentile: 1254 g; 78% Measurement variability in biometric dating: +/- 10 days from 12-20 weeks gestation, +/- 2 weeks from 20-30 weeks gestation, +/- 3 weeks at 30 weeks gestation or more. IMPRESSION: 1. A single living intrauterine gestation with appropriate interval growth. 2. The estimated weight is 1254 gm; 78 percentile for gestational age. 3. Normal KATHIA. Reviewed by: Love Keller MD on 02/01/2020 4:15 PM PDT Approved by: Love Keller MD on 02/01/2020 4:15 PM PDT Station ID: [id number]
== END 2020-02-01 14:46 | disposition home or self-care (01) ==
LOC: DI 14:45
PROVIDERS: ATTEND Advanced Practice Midwife
DX: O26.843 Uterine size-date discrepancy, third trimester (principal); Z3A.29 29 weeks gestation of pregnancy
CPT/HCPCS: 76816

== ENCOUNTER 2020-02-11 07:40 | Outpatient (CLI) | payer OTHER ==
[2020-02-11 09:08] LABS: MEAN CORPUSCULAR HEMOGLOBIN 31.1 pg (27.0-31.0); MEAN CORPUSCULAR HGB CONC 33.7 g/dL (32.0-36.0); MEAN CORPUSCULAR VOLUME 92.2 fL (81.0-99.0); MEAN PLATELET VOLUME 9.8 fL (7.9-10.8); RED BLOOD COUNT 3.86 10^6/uL (4.20-5.40); WHITE BLOOD COUNT 6.6 x10^3/uL (4.8-10.8)
== END 2020-02-11 07:41 | disposition home or self-care (01) ==
LOC: LAB 07:40
PROVIDERS: ATTEND Advanced Practice Midwife
DX: Z34.90 Encounter for supervision of normal pregnancy, unspecified, unspecified trimester (principal); Z36.89 Encounter for other specified antenatal screening
CPT/HCPCS: 36415; 82950; 85025; 85027

== ENCOUNTER 2020-02-18 08:00 | Outpatient (CLI) | payer OTHER | END 2020-02-18 08:01 | disposition home or self-care (01) | LOC: LAB 08:00 | PROVIDERS: ATTEND Advanced Practice Midwife | DX: Z34.90 Encounter for supervision of normal pregnancy, unspecified, unspecified trimester (principal); Z36.89 Encounter for other specified antenatal screening | CPT/HCPCS: 36415; 82951; 82952 ==

== ENCOUNTER 2020-04-06 07:00 | Outpatient (CLI) | payer OTHER | END 2020-04-06 23:59 | disposition home or self-care (01) | LOC: LAB.R 07:00 | PROVIDERS: ATTEND Advanced Practice Midwife | DX: Z34.90 Encounter for supervision of normal pregnancy, unspecified, unspecified trimester (principal); Z36.85 Encounter for antenatal screening for Streptococcus B | CPT/HCPCS: 87797 ==

== ENCOUNTER 2020-04-30 15:45 | Inpatient (IN) | payer OTHER ==
[2020-04-30] MEDS ORDERED: TRANEXAMIC ACID 1,000 MG in SODIUM CHLORIDE 0.9% 100ML 100 ML IV PRN (17:28)
[2020-04-30] MEDS ORDERED: METHYLERGONOVINE 0.2 MG/ML VIAL IM PRN (17:28)
[2020-04-30] MEDS ORDERED: OXYTOCIN/SODIUM CHLORIDE 500 ML IV PRN (17:28)
[2020-04-30] MEDS ORDERED: SODIUM CHLORIDE FLUSH 0.9% 10 ML SYRINGE IVP PRN (17:28)
[2020-04-30] MEDS ORDERED: miSOPROStoL 200 MCG TABLET BC PRN (17:28)
[2020-04-30] MEDS ORDERED: ONDANSETRON 4 MG/2 ML VIAL IVP PRN (17:28)
[2020-04-30] MEDS ORDERED: OXYTOCIN 10 UNIT/ML VIAL IM PRN (17:28)
[2020-04-30] MEDS ORDERED: LIDOCAINE-MPF 1% 30 ML VIAL ID PRN (17:28)
[2020-04-30] MEDS ORDERED: CARBOPROST TROMETHAMINE 250 MCG/ML AMP IM PRN (17:28)
[2020-04-30 17:36] LABS: BASOPHILS % (AUTO) 0.3 %; EOSINOPHILS % (AUTO) 0.3 %; HGB - HEMOGLOBIN 12.4 g/dL (12.0-16.0); LYMPHOCYTES # (AUTO) 1.7 10^3/uL (1.5-3.5); MEAN CORPUSCULAR HEMOGLOBIN 29.5 pg (27.0-31.0); MEAN CORPUSCULAR HGB CONC 33.2 g/dL (32.0-36.0); MEAN CORPUSCULAR VOLUME 88.6 fL (81.0-99.0); MEAN PLATELET VOLUME 11.6 fL (7.9-10.8); MONOCYTES # (AUTO) 0.5 10^3/uL (0.0-1.0); NEUTROPHILS # (AUTO) 7.1 10^3/uL (1.5-6.6); PLT - PLATELET COUNT 215 10^3/uL (130-450); RED BLOOD COUNT 4.21 10^6/uL (4.20-5.40); RED CELL DISTRIBUTION WIDTH 13.7 % (12.0-15.0); WHITE BLOOD COUNT 9.4 x10^3/uL (4.8-10.8)
--- NOTE | 2020-04-30 17:37 | HISTORY & PHYSICAL EXAMINATION ---
Admit History - Visit Reason Visit Reason: Contractions - : 2 Parity: 1 Premature: 0 Ectopic: 0 : 0 Care: positive: [facility] Risk/History: positive: Premature rupture membrane Complications This : positive: None Smoking Status: Never smoker - Mother's Labs Mother's Blood Type: positive: O Mother's RH: positive: Positive GBS: positive: Group B Step Negative Rubella Status: positive: Immune Meds/Allgy - Allergies Allergies/Adverse Reactions: Allergies Allergy/AdvReac Type Severity Reaction Status Date / Time morphine Allergy Unknown Verified 04/30/20 16:17 Review of Systems - Constitutional Constitutional: denies: Fatigue, Fever, Chills, Malaise - Eyes Eyes: denies: Blurred vision, Spots in vision, Dipolpia - Cardiovascular Cariovascular: denies: Chest pain, Edema - Respiratory Respiratory: denies: Cough, SOB at rest - Gastrointestinal Gastrointestinal: denies: Abdominal pain, Change in bowel habits - Genitourinary Genitourinary: denies: Dysuria - Integumentary Integumentary: denies: Rash, Pruritis - Neurological Neurological: denies: Headache - Psychiatric Psychiatric: denies: Depression, Anxiety Physical - Abdominal Exam Vital Signs: Temp Pulse Resp BP Pulse Ox 36.8 C 97 17 134/81 H 100 04/30/20 15:54 04/30/20 15:54 04/30/20 15:54 04/30/20 15:54 04/30/20 15:54 Contraction Frequency (min/apart): 3-8 Contraction Intensity: positive: Moderate Uterine Resting Tone: positive: Soft - Monitoring Heart Rate Baseline: 160 Strip Review: positive: Category I - Presentation Presentation: positive: Vertex - Vaginal Exam Membranes: positive: Membranes intact Dilation (in cm): 2 Effacement (%): 80 Station: positive: -2 Cervical Position: positive: Posterior - Speculum Exam Speculum Exam Performed: positive: No Plan for Labor - Plan For Labor I expect patient to be DC'd or transferred within 96 hours.: Yes Plan for Labor: HPI: This 30yo @ 40.2wks gestatio nby LMP c/w 10.1wk U/S presents to [facility] with c/o contractions which started at approximately 10:00 this morning and have progressively increased in frequency and intensity throughout the day. She states when they decided to come in contractions were every 3-6 minutes lasting 40-60 seconds. She denies vaginal bleeding or leakage for fluid and reports +FM. She states on the drive here her contractions spaced out a little but they have continued to increase in intensity. She rate the pain 6/10 and feels she is coping well at this time. SVE 50/-2, posterior, vertex. Patient allowed to ambulate x 1 hour and repeat SVE /-2, vertex with intact membranes. She declines to be discharged home and requests labor augmentation if possible. Pt will be admitted to [facility] for labor augmentation with pitocin. Zaynab has been a patient of [facility] through the duration of her which has been complicated only by an impaired 1 hour GTT, however her 3 hour GTT was WNL. Her has otherwise remained uncomplicated. She is supported by her Juan. Dating Criteria: LMP 07/23/2019 Initial ultrasound @ 10.1wks c/w LMP dating Serial exams: agree OBHx: G1: 11/09/2017, @ 38wks. >24hr labor. Induction secondary to premature rupture of membranes. Epidural. Male (Souleymane). 6lb 11oz. 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 Juan. Family Hx: Arthritis - mother, father; Lung cancer - PGM; Asthma - PGF; Heart disease - PGM; Stroke/CVA - MGM course: Initial US: 09/27/2019 10.1wks gestation c/w LMP for ABEBE of 04/23/2020. Ovarian cyst noted, conistent with corpus luteum. O pos/Rubella immune Gentic testing: Declines FAS: Placenta posterior, 3VC, EFW 60%ile, CL 4.8, FAS wnl f/u Growth US: 78th % for weight and KATHIA. Glucola- 145; 3hr WNL TDAP : 02/16/2020 Influenza: 03/15/2020 GBS at 36.6 weeks - neg HSV: denies self and partner Breast pump Rx: 12/16/2019 MOD: . Spouse: Juan. (Souleymane, 2yo, ) baby BOY (deciding on name) Wants to try NOx, will likely still want epidural IOL: 05/05/2020 at 41.0wks at 0730 pp contraception: Shae IUD (has had COCs in past and made her mental health worse) PAP; 04/15/2018-wnl, due 2022 Physical Exam: Normocephalic, atraumatic with left facial paralysis Heart RRR w/o M/G/R Lungs CTAB Abdomen gravid, soft, nontender EFW 3600g SVE 2/80/-2, posterior, soft. Vertex. Membranes intact. FHR baseline 160, moderate variability, + accels, no decels- period of indeterminite baseline and questionable baseline change vs recurrent late decelerations. Immediately followed by meeting criteria for baseline change to 130bpm. Overall reassuring Bilateral LE's no edema Mood is good. Assessment: 30yo @ 40.2wks gestation by LMP c/w 10.1wk U/S Early labor GBS negative FHR Category I Plan: Admit for active management Initiation pitocin for labor augmentation with titration per protocol Continuous monitoring Nitrous oxide PRN. Jacuzzi PRN Epidural per maternal request Anticipate
[2020-04-30] MEDS ORDERED: OXYTOCIN/SODIUM CHLORIDE 500 ML IV SCH (18:00)
[2020-04-30] MEDS ORDERED: LACTATED RINGERS 1,000 ML IV SCH (18:00)
[2020-04-30] MEDS ORDERED: ROPIVACAINE 0.2% 200 MG/100 ML BAG EP ONE (23:29)
[2020-05-01] MEDS ORDERED: ePHEDrine 50 MG/ML VIAL IVP PRN (00:15)
[2020-05-01] MEDS ORDERED: NALOXONE 0.4 MG/ML VIAL IVP PRN (00:15)
[2020-05-01] MEDS ORDERED: ONDANSETRON 4 MG/2 ML VIAL IVP PRN (00:15)
[2020-05-01] MEDS ORDERED: diphenhydrAMINE INJ 50 MG/ML VIAL IVP PRN (00:15)
[2020-05-01] MEDS ORDERED: ROPIVACAINE 0.2% 200 MG/100 ML BAG EP PRN (00:15)
[2020-05-01] MEDS ORDERED: METOCLOPRAMIDE 10 MG/2 ML VIAL IVP PRN (00:15)
--- NOTE | 2020-05-01 00:19 | ANESTHESIA ---
Pre-Anesthesia VS, & Labs - Diagnosis labor induction - Procedure labor epidural Vital Signs: Temp Pulse Resp BP Pulse Ox 36.8 C 97 17 134/81 H 100 04/30/20 18:45 04/30/20 15:54 04/30/20 15:54 04/30/20 15:54 04/30/20 15:54 Height: 5 ft 6 in Weight (kg): 92.533 kg Body Mass Index: 32.9 BMI Classification: Obese - NPO >8 hours - Is Patient ?: Yes - Lab Results Current Lab Results: Laboratory Tests 04/30/20 17:05: WBC 9.4, RBC 4.21, Hgb 12.4, Hct 37.3, MCV 88.6, MCH 29.5, MCHC 33.2, RDW 13.7, Plt Count 215, MPV 11.6 H, Neut # (Auto) 7.1 H, Lymph # (Auto) 1.7, [place] # (Auto) 0.5, Eos # (Auto) 0.0, Baso # (Auto) 0.0, Absolute Nucleated RBC 0.00, Nucleated RBC % 0.0 04/30/20 17:05: Blood Type O POSITIVE, Antibody Screen NEGATIVE Fish Bones: 04/30/20 17:05 Home Medications and Allergies Active Medications Carboprost Tromethamine (Hemabate) 250 mcg IM Q15M PRN PRN Reason: Step 4: Hemorrhage protocol Stop: 05/05/20 17:28 Lactated Ringer's (Lr) 1,000 mls @ 150 mls/hr IV .Q6H40M [facility] Last Admin: 04/30/20 19:12 Dose: 100 mls/hr Documented by: Oxytocin/Sodium Chloride (Pitocin/Sodium Chloride) 500 mls @ 999 mls/hr IV PRN PRN; Protocol PRN Reason: POST- HEMORR PREVENTION Stop: 05/05/20 17:28 Tranexamic Acid 1,000 mg/ (Sodium Chloride) 110 mls @ 660 mls/hr IV .ONCE PRN PRN Reason: EBL >1200mL and within 3hr Stop: 05/05/20 17:28 Oxytocin/Sodium Chloride (Pitocin/Sodium Chloride) 500 mls @ 1 mls/hr IV TITR SHON; Protocol Last Admin: 04/30/20 19:12 Dose: 1 milliunit/min, 1 mls/hr Documented by: Lidocaine HCl (Xylocaine-Mpf 1% Vial) 30 ml ID .ONCE PRN PRN Reason: PERINEAL REPAIR Stop: 05/05/20 17:28 Methylergonovine Maleate (Methergine Inj) 0.2 mg IM .ONCE PRN PRN Reason: Step 2: Hemorrhage protocol Stop: 05/05/20 17:28 Misoprostol (Cytotec) 800 mcg BC .ONCE PRN PRN Reason: Step 3: Hemorrhage protocol Stop: 05/05/20 17:28 Ondansetron HCl (Zofran Inj) 4 mg IVP Q4H PRN PRN Reason: Nausea / Vomiting Oxytocin (Pitocin) 10 unit IM .ONCE PRN PRN Reason: Step one: If no IV access Stop: 05/05/20 17:28 Sodium Chloride (Normal Saline Flush 0.9%) 10 ml IVP PRN PRN PRN Reason: NEEDED PER PROVIDER ORDERS Sodium Chloride (Normal Saline Flush 0.9%) 10 ml IVP 0100,0900,1700 SHON Allergies/Adverse Reactions: Allergies Allergy/AdvReac Type Severity Reaction Status Date / Time morphine Allergy Unknown Verified 04/30/20 16:17 Anes History & Medical History - Anesthetic History Anesthesia Complications: reports: No previous complications - Medical History Cardiovascular: reports: None Pulmonary: reports: None Gastrointestinal: reports: None Urinary: reports: None Neuro: reports: Other (facial nerve palsy) Musculoskeletal: reports: None Smoking Status: Never smoker - Surgical History Neurologic: Other (facial nerve surgery) - Obstetrical History : 2 Parity: 1 Events: positive: Premature rupture membrane Complications: positive: None Exam General: Alert Dental: WNL Respiratory: Lungs clear Cardiovascular: Regular rate Plan Anesthesia Type: Epidural Consent for Procedure(s) Verified and Reviewed: Yes Code Status: Attempt Resuscitation ASA classification: 2-Mild systemic disease Is this case an emergency?: No
--- NOTE | 2020-05-01 00:49 | DELIVERY NOTE ---
Delivery Note - Labor Labor: positive: Augmented by oxytocin - Delivery Method Delivery Method: positive: Spontaneous vaginal delivery - Presentation Presentation: positive: Vertex, CRISTIANE - left occiput anterior - Nuchal Cord Nuchal Cord: positive: Present, Reduced - Amniotic Fluid Description Amniotic Fluid Description: positive: Clear - Episiotomy Type Episiotomy Type: positive: None - Laceration Laceration: positive: None - Delivery Outcome Delivery Outcome: positive: Livebirth - [place] : positive: Placed in direct skin contact with mother, Bulb syringe, Stimulated, Warmed, [place] used, Warmer used [place] sex: positive: Male - Cord Cord: positive: 3 vessels - Placenta Placenta: positive: Intact, Spontaneous - Estimated Blood Loss Estimated Blood Loss (in cc): 150 - Post Delivery Events Post Delivery Events: positive: No post delivery events - Delivery Comments (Free Text/Narrative) Delivery Comments (Free Text/Narrative): Labor: This 30yo @ 40.3wks gestation by LMP c/w 10.1wk U/S presented on 04/30/2020 at approximately 1500 with c/o contractions. SVE 1/50/-2 and vertex. Pt was allowed to ambulate x 1 hour and repeat SVE 2/80/-2. Counseled patient regarding discharge home or labor augmentation and pt elects labor augmentation. Pitocin administered for labor augmentation with titration per protocol for a maximum infusion rate of 4mU/mL. FHR pattern demonstrated Category I pattern throughout labor. Precipitous labor course. SROM occurred at 1000 and was noted to be a moderate amount of clear fluid. Epidural placed per maternal request. Patient progressed to c/c/+1 @ 0004. : Normal of viable male on 05/01/2020 @ 0026. Nuchal cord x 1 - reduced. The was placed on maternal abdomen, stimulated, dried, and placed skin to skin. After 60 seconds of cord pulsation the umbilical cord was doubly clamped by CNM and cut by FOB. 3VC. Secondary to poor tone labor RN moves to warmer to further assess. Infant responds well to bulb suction and additional stimulation at infant warmer. 's were 6/8 at 1 and 5 min respectively. Cord blood was obtained. Pitocin administered via IV for h emostasis. Fundal massage and gentle cord traction applied for active management of the third stage. Placenta delivered spontaneously and intact at 0026. EBL 150mL. Fourth stage: Uterine fundus firm and there is no excessive bleeding. The perineum, vagina, and cervix were inspected and found to be intact. Infant brought to mother and placed skin to skin. Family bonding well. Both mother and baby were left in stable condition.
[2020-05-01] MEDS ORDERED: HYDROCORTISONE 1% CREAM 28 GM TUBE PR PRN (00:53)
[2020-05-01] MEDS ORDERED: WITCH HAZEL/GLYCERIN 1 PAD TOP PRN (00:53)
[2020-05-01] MEDS ORDERED: SODIUM CHLORIDE FLUSH 0.9% 10 ML SYRINGE IVP SCH (01:00)
[2020-05-01] MEDS: IBUPROFEN 800 MG TABLET PO SCH ×4 (02:01→21:07)
[2020-05-01] MEDS: ACETAMINOPHEN 500 MG TABLET PO SCH ×2 (02:02→14:59)
[2020-05-01] MEDS ORDERED: SERTRALINE 50 MG TABLET PO SCH (09:00)
--- NOTE | 2020-05-01 16:11 | PROVIDER PROGRESS NOTE ---
Subjective - Prog Note Date Prog Note Date: 05/01/20 Prog Note Time: 16:07 - Subjective Pt reports feeling: Improved Subjective: S: Zaynab is resting in bed holding her . She reports as going quite well, with slightly more cramping than her last . She reports her pain as well controlled with PO meds. She desires to go home tonight, if possible. O: Fundus firm lochia rubra-light perineum intact A: 30yo s/p on 05/01/2020 Normal course P: Continue with routine care Evaluate for discharge home tonight, or in the morning per Peds Objective - Vital Signs/Intake & Output Vital Signs: Vital Signs x48h Temp Pulse Pulse Resp BP Pulse Ox 05/01/20 14:08 36.7 C 68 68 16 110/65 100 05/01/20 09:10 36.7 C 86 16 103/91 H 100 Intake & Output: Intake & Output 04/28/20 04/29/20 04/30/20 05/01/20 23:59 23:59 23:59 23:59 Intake Total 3500 Output Total 200 Balance 3300 - Lab Results Fish Bones: 04/30/20 17:05 Other Labs: Lab Results x24hrs 04/30/20 04/30/20 Range/Units 17:05 17:05 WBC 9.4 (4.8-10.8) x10^3/uL RBC 4.21 (4.20-5.40) 10^6/uL Hgb 12.4 (12.0-16.0) g/dL Hct 37.3 (37.0-47.0) % MCV 88.6 (81.0-99.0) fL MCH 29.5 (27.0-31.0) pg MCHC 33.2 (32.0-36.0) g/dL RDW 13.7 (12.0-15.0) % Plt Count 215 (130-450) 10^3/uL MPV 11.6 H (7.9-10.8) fL Neut # (Auto) 7.1 H (1.5-6.6) 10^3/uL Lymph # (Auto) 1.7 (1.5-3.5) 10^3/uL [place] # (Auto) 0.5 (0.0-1.0) 10^3/uL Eos # (Auto) 0.0 (0.0-0.7) 10^3/uL Baso # (Auto) 0.0 (0.0-0.1) 10^3/uL Absolute Nucleated RBC 0.00 x10^3/uL Nucleated RBC % 0.0 /100WBC Blood Type O POSITIVE Antibody Screen NEGATIVE
[2020-05-02] MEDS: IBUPROFEN 800 MG TABLET PO SCH ×2 (03:07→11:00)
[2020-05-02] MEDS: ACETAMINOPHEN 500 MG TABLET PO SCH ×2 (03:08→11:00)
--- NOTE | 2020-05-02 09:58 | Discharge Plan ---
Discharge Plan Problem Reviewed?: Yes Disposition: 01 Home, Self Care Condition: Good Additional Instructions or Follow Up instructions: Follow up at 1 and 6 wks with Midwifery No Smoking: If you smoke, Please STOP! Call for help.
--- NOTE | 2020-05-02 09:59 | DISCHARGE SUMMARY ---
Discharge Summary Discharge Date: 05/02/20 Condition at Discharge: Good Discharge Disposition: 01 Home, Self Care - HPI History of Present Illness: Admit Date 04/30/2020 Discharge Date 05/02/2020 Diagnosis on Admission: 1. A 30yo at 40.3 week intrauterine 2. Early Active Labor Diagnosis on Discharge 1. A 30yo s/p spontaneous vaginal delivery on 05/01/2020 2. Normal recovery Brief History: She is a patient at [facility] who presented on 04/30/2020 with complaints of contractions. The patient was found to contract every 1 to 5 minutes and her cervix was 2cm dilated, 80%effaced, and -2 station. She as augmented with pitocin and spontaneously delivered a viable male infant . Apgars were 6 and 8- and 1 and 5 minutes respectively. EBL 150mL. The patients perineum was found to be intact. She has been doing well in her course. She is ambulating and tolerating a regular diet. She is urinating without difficulty and her lochia is normal. Her pain is well controlled with oral medications. She will be discharged home today on day #1 without need for prescriptions. She intends to follow up with Midwifery at [facility] in 1, and 6 weeks for routine visit. She has been given precautions to call if she has any worsening fevers, chills, abdominal pain, increased bleeding or foul smelling vaginal lochia. - ALLERGIES Allergies/Adverse Reactions: Allergies Allergy/AdvReac Type Severity Reaction Status Date / Time morphine Allergy Unknown Verified 04/30/20 16:17 - LABS Result Diagrams: 04/30/20 17:05
[2020-05-02 12:03] VITALS: BP 103/68
--- NOTE | 2020-05-02 12:28 | Labor Flowsheet ---
Labor Flowsheet Datetime Report Generated by CPN: 05/02/2020 12:28 Datetime: 05/02/2020 03:08 VITAL SIGNS NBP Sys/Karissa/Mean (mmHg): 105 : 88 : 92 Pulse: 71 Datetime: 05/01/2020 02:44 SpO2 (%): 98 Datetime: 05/01/2020 02:15 Stage of : Recovery Pain Presence: None/Denies Datetime: 05/01/2020 01:03 Membranes Ruptured Date/Time: 04/30/2020 22:00 Membranes Rupture Method: Spontaneous Amniotic Fluid Color: Clear Amniotic Fluid Amount: Moderate Amniotic Fluid Odor: Normal Datetime: 05/01/2020 00:31 Respirations: 18 Datetime: 05/01/2020 00:26 Temperature (C): 36.8 Temperature Route: Oral PAIN Pain Scale: 0 Datetime: 05/01/2020 00:19 LaborFlag: Labor Datetime: 05/01/2020 00:15 UTERINE ACTIVITY Monitor Mode: External Frequency (min): 2-3 Quality: Strong Duration (sec): 2-3 Pattern: Normal: <= 5 Contractions in 10 Minutes Datetime: 05/01/2020 00:12 STAGE 2 Pushing: Coached on Pushing Datetime: 05/01/2020 00:04 VAGINAL EXAM Dilatation (cm): 10.0 Datetime: 04/30/2020 23:45 Monitor Interventions for UA: Maish Vaya Adjusted Resting Tone (Palpate): Relaxed ASSESSMENT A Monitor Mode: Clinical Informatics Director Interventions for FHR: Ultrasound Adjusted Variability: Moderate 6-25 bpm Accelerations: 15X15 Decelerations: Early Datetime: 04/30/2020 23:36 Epidural Procedure: Test Dose Datetime: 04/30/2020 23:28 PROCEDURE TIME OUT Procedure Type: epidural Procedure Verify: Correct Patient Identity; Correct Side and Site are Marked; Accurate Procedure Co nsent Form; Agreement on Procedure to be Done; Correct Patient Position Epidural Positioning: Sitting Datetime: 04/30/2020 23:18 Anesthesia Comments: Anesthesia here to place epidural Datetime: 04/30/2020 23:12 ANESTHESIA Anesthesia Plans: Epidural Anesthesia Interview: W Datetime: 04/30/2020 23:00 FHR Baseline Rate : 130 FHR Baseline Changes: No Baseline Change Datetime: 04/30/2020 22:55 Communication Comments: anesthesia called coming in to place epidural Datetime: 04/30/2020 22:50 Provider Reviewed Strip: Yes COMMUNICATION Communication: Call/Page Placed to Provider Notification Reason: Status Update; Labor Status; Pain Datetime: 04/30/2020 22:04 Pain Type: Cramping MEDICATIONS Pitocin (milliunits): Increased to @ 4 Datetime: 04/30/2020 21:25 Pain Coping: Other (Annotations: Nitrous working well) Datetime: 04/30/2020 21:21 Effacement (%): 80 Station: -2 Exam by: HMahala Datetime: 04/30/2020 21:02 Medication Comments: Nitrous being used Datetime: 04/30/2020 19:58 Pain Location: Abdomen; Back Datetime: 04/30/2020 19:44 Category: Category I Datetime: 04/30/2020 19:30 Pitocin Checklist: At Least 1 Acceleration of 15 bpm x 15 Seconds in 30 Minutes or Adequate Variabi lity Datetime: 04/30/2020 19:12 PATIENT CARE IV/Blood Work: IV Infusing per Order; IV Bag Number @ 1 Datetime: 04/30/2020 18:00 Contraction Comments: Contractions tracing poorly, toco adjusted Comments: Indeterminate decel. Provide present and reviewed strip, agrees.
== END 2020-05-02 11:45 | disposition home or self-care (01) | DRG 807 ==
LOC: WFO 15:45 → FBP 15:46 → WFO 17:27 → FBP 17:28
PROVIDERS: ADMIT Nurse Practitioner Obstetrics & Gynecology; ATTEND Advanced Practice Midwife
PROC: 10E0XZZ Delivery of Products of Conception, External Approach (ICD-10-PCS; principal; 2020-05-01)
DX: O69.81X0 Labor and delivery complicated by cord around neck, without compression, not applicable or unspecified (principal); Z37.0 Single live birth; Z3A.40 40 weeks gestation of pregnancy
CPT/HCPCS: 85025; 86850; 86900; 86901; 87635; A9270; J7120

== ENCOUNTER 2023-07-14 08:00 | Outpatient (CLI) | payer OTHER ==
--- NOTE | 2023-07-14 15:26 | XRAY Report ---
PROCEDURE: Chest 2V INDICATIONS: STRAIN OF FRONT WALL OF THORAX TECHNIQUE: 2 views of the chest were acquired. COMPARISON: None. FINDINGS: Surgical changes and devices: None. Lungs and pleura: No pleural effusions or pneumothorax. Lungs are clear. Mediastinum: Mediastinal contours appear normal. Heart size is normal. Bones and chest wall: No suspicious bony lesions. Overlying soft tissues appear unremarkable. IMPRESSION: No acute cardiopulmonary process. Reviewed by: Grayson Jeong MD on 07/14/2023 3:25 PM PST Approved by: Grayson Jeong MD on 07/14/2023 3:25 PM PST Station ID: [id number]
== END 2023-07-14 23:59 | disposition home or self-care (01) ==
LOC: DI.S 08:00
PROVIDERS: ATTEND Emergency Medicine
DX: S29.011A Strain of muscle and tendon of front wall of thorax, initial encounter (principal)